=== PATIENT | male | born 1945 | race Caucasian/White ===

== ENCOUNTER → 2023-07-14 12:48 | Outpatient (REF) | payer MEDICARE, OTHER, SELFPAY | LOC: DHCBC MAIN 12:48 | PROVIDERS: ATTENDING PHYSICIAN Internal Medicine Cardiovascular Disease; FAMILY PHYSICIAN Family Medicine | DX: I49.3 Ventricular premature depolarization (principal) | CPT/HCPCS: 93306 ==

== ENCOUNTER → 2023-08-05 06:34 | Day surgery (SDC) | payer MEDICARE, OTHER, SELFPAY | LOC: GI 06:34 | PROVIDERS: ATTENDING PHYSICIAN Internal Medicine Gastroenterology | DX: D50.9 Iron deficiency anemia, unspecified (principal); K57.30 Diverticulosis of large intestine without perforation or abscess without bleeding; K64.8 Other hemorrhoids; K22.89 Other specified disease of esophagus; K44.9 Diaphragmatic hernia without obstruction or gangrene; K31.811 Angiodysplasia of stomach and duodenum with bleeding; K31.89 Other diseases of stomach and duodenum; I89.0 Lymphedema, not elsewhere classified | CPT/HCPCS: 43255; 45378; 43239; 88305 ==

== ENCOUNTER → 2023-09-16 08:27 | Outpatient (REF) | payer MEDICARE, OTHER, SELFPAY | LOC: RAD 08:27 | PROVIDERS: ATTENDING PHYSICIAN Surgery Vascular Surgery; FAMILY PHYSICIAN Family Medicine | DX: I70.1 Atherosclerosis of renal artery (principal) | CPT/HCPCS: 93975 ==

== ENCOUNTER → 2023-09-16 09:30 | Outpatient (REF) | payer MEDICARE, OTHER, SELFPAY | LOC: MRI 3T 09:30 | PROVIDERS: ATTENDING PHYSICIAN Internal Medicine Gastroenterology; FAMILY PHYSICIAN Family Medicine | DX: K76.9 Liver disease, unspecified (principal) | CPT/HCPCS: 74183; A9575 ==

== ENCOUNTER → 2023-10-13 12:50 | Outpatient (REF) | payer MEDICARE, OTHER, SELFPAY | LOC: RCS 12:50 | PROVIDERS: ATTENDING PHYSICIAN Internal Medicine Cardiovascular Disease; FAMILY PHYSICIAN Family Medicine | DX: I31.39 Other pericardial effusion (noninflammatory) (principal); I10 Essential (primary) hypertension; E78.2 Mixed hyperlipidemia; R06.00 Dyspnea, unspecified; I49.3 Ventricular premature depolarization; I08.3 Combined rheumatic disorders of mitral, aortic and tricuspid valves | CPT/HCPCS: 93308; 93321; 93325 ==

== ENCOUNTER → 2024-05-20 11:23 | Outpatient (REF) | payer MEDICARE, OTHER, SELFPAY | LOC: HWRAD 11:23 | PROVIDERS: ATTENDING PHYSICIAN Internal Medicine; FAMILY PHYSICIAN Family Medicine | DX: R22.0 Localized swelling, mass and lump, head (principal) | CPT/HCPCS: 76536 ==

== ENCOUNTER 2024-08-25 13:20 | Outpatient (RCR) | payer MEDICARE, SELFPAY ==
[2024-08-25 11:26] LABS: % Basophils 0.2 % (0-2); % Immature Granulocytes 0.2 % (0-0.5); % Monocytes 15.3 % (1.7-9.3); % Neutrophils 67.3 % (42.2-75.2); Absolute Eosinophils 0.2 10^3/uL (0-0.7); Absolute Lymphocytes 0.7 10^3/uL (1.2-3.4); Absolute Monocytes 0.8 10^3/uL (0.1-0.6); Absolute Neutrophils 3.5 10^3/uL (1.4-6.5); Hematocrit 25.4 % (39.0-52.0); Hemoglobin 8.5 g/dL (13.0-18.0); Mean Corp Hgb Conc. 33.5 g/dL (33.0-37.0); Mean Corpuscular Hgb 29.4 pg (27.0-31.0); Mean Corpuscular Volume 87.9 fL (80.0-94.0); Mean Platelet Volume 9.2 fL (7.4-10.4); Platelet Count 184 10^3/uL (130-400); Red Blood Cell Count 2.89 10^6/uL (4.70-6.10); Red Cell Dist. Width 14.4 % (11.5-14.5); White Blood Cell Count 5.2 10^3/uL (4.8-10.8)
[2024-08-25 12:28] LABS: Blood Urea Nitrogen 33 mg/dl (9-20); Iron 36 ug/dl (49-181)
[2024-08-25 12:38] LABS: Percent Saturation 14 % (20-50); Total Iron Binding Capacity 254 ug/dl (261-462)
== END 2024-08-25 23:59 | disposition home or self-care (01) ==
LOC: OID 13:20
PROVIDERS: ATTENDING PHYSICIAN Nurse Practitioner Adult Health; FAMILY PHYSICIAN Family Medicine
DX: D50.9 Iron deficiency anemia, unspecified (principal)
CPT/HCPCS: 82565; 82728; 83540; 83550; 84520; 85025

== ENCOUNTER → 2024-10-06 14:36 | Outpatient (REF) | payer MEDICARE, SELFPAY ==
[2024-10-06 14:42] LABS: % Basophils 0.2 % (0-2); % Eosinophils 5.7 % (0-6); % Immature Granulocytes 0.2 % (0-0.5); % Lymphocytes 15.4 % (20.5-51.1); % Monocytes 15.1 % (1.7-9.3); % Neutrophils 63.4 % (42.2-75.2); Absolute Eosinophils 0.3 10^3/uL (0-0.7); Absolute Lymphocytes 0.7 10^3/uL (1.2-3.4); Absolute Monocytes 0.7 10^3/uL (0.1-0.6); Absolute Neutrophils 2.9 10^3/uL (1.4-6.5); Hematocrit 32.8 % (39.0-52.0); Hemoglobin 10.5 g/dL (13.0-18.0); Mean Corpuscular Hgb 28.4 pg (27.0-31.0); Mean Corpuscular Volume 88.6 fL (80.0-94.0); Mean Platelet Volume 8.9 fL (7.4-10.4); Platelet Count 179 10^3/uL (130-400); Red Cell Dist. Width 15.3 % (11.5-14.5); White Blood Cell Count 4.6 10^3/uL (4.8-10.8)
== END ==
LOC: OIDL 14:36
PROVIDERS: ATTENDING PHYSICIAN Internal Medicine Hematology & Oncology
DX: D50.0 Iron deficiency anemia secondary to blood loss (chronic) (principal); D64.9 Anemia, unspecified; D46.9 Myelodysplastic syndrome, unspecified
CPT/HCPCS: 85025

== ENCOUNTER 2024-10-26 19:58 | Inpatient (IN) | payer MEDICARE, OTHER, SELFPAY ==
[2024-10-26 16:00] VITALS: BP 168/78
--- NOTE | 2024-10-26 16:35 | ED.GENMED ---
History of Present Illness
<Nay Allen PA-C - Last Filed: 10/26/24 22:23>
General
Chief Complaint: Musculo-Skeletal Complaint
Source: patient
Exam Limitations: none
Time Seen by Provider: 10/26/24 16:19
History of Present Illness
History of Present Illness:
79yoM with a history of hypertension, anemia, Sjogren's syndrome presenting with his for evaluation after a fall about 2 hours ago. Patient reports falling about 4-5 feet off a ladder. He fell onto his feet and injured his right knee. He has
been unable to bear weight since the fall. He denies any head strike or LOC. Patient denies other injuries. Specifically, he denies any headache, neck pain, back pain, shortness of breath, paresthesias. He does not take any blood thinners.
Phy Exam
<Nay Allen PA-C - Last Filed: 10/26/24 22:23>
General Physical Exam
General Presentation: well appearing and no apparent distress
General Skin: warm and dry
General Habitus: normal
General Mental: alert
ENT Exam
ENT Exam: normocephalic and other (No external signs of head trauma. No cervical spine tenderness.)
Eye Exam
Eye Exam: other (R pupil larger than L, baseline per patient)
Pulmonary Exam
Pulmonary Exam: lungs clear, no respiratory distress, no rales, chest non tender, no crackles and no rhonchi
Gastrointestinal Exam
Gastrointestinal Exam: non tender, soft and non distended
Neurological Exam
Neurological Exam: alert
[place] Coma Scale
Eye Opening: Spontaneous
Verbal Response: Oriented
Motor Response: Obeys Commands
GCS Total Score: 15
Musculoskeletal Exam
Musculoskeletal Exam: other (R knee: Deformity noted with swelling to lateral proximal lower leg. +Generalized tenderness. Unable to range joint due to pain. Strong DP doppler signal. Sensation intact.)
Skin Exam
Skin Exam: warm/dry
Psychiatric Exam
Psychiatric Exam: normal mood/affect
Course
<Nay Allen PA-C - Last Filed: 10/26/24 22:23>
Orders/Labs/Results
Orders:
Orders
10/26/24 Breakfast
Cholesterol Lowering
Oral Supplement (If unsure of flavor order apple or vanilla): Ensure Enlive Chocolate
Ensure Enlive [place]
Comment: NPO at midnight for possible surg tommorrow
10/26/24 15:54
Knee, Right 4 or More Views [CR Knee- Right 4 Or More View*] Urgent
Comment:
Reason For Exam: pain injury
10/26/24 16:30
Oxycodone/Acetaminophen [Percocet 5/325] 1 tablet PO NOW STA
10/26/24 16:35
HYDROmorphone [Dilaudid] 0.5 mg IV NOW STA
10/26/24 16:41
CT Angio Lower Ext W/Wo Iv Contrast [CT Lower Ext Angio W/wo Iv Con] Urgent
Comment:
Reason For Exam: R knee injury/deformity
10/26/24 16:47
Complete Blood Count/With Diff Urgent
Comprehensive Metabolic Panel Urgent
10/26/24 17:57
HYDROmorphone [Dilaudid] 0.5 mg IV NOW STA
10/26/24 19:43
Admit/Transfer Patient As Directed
Co-Sign Provider:
Level of Care: Inpatient admission
Assign to:: Medical/Surgical
Physician / Group: solo
Diagnosis: tibial pleateau fracture
Reason for Hospitalization: tibial plateau fracture
Expected length of stay greater than two midnights?: Yes
ELOS- Estimated Length of Stay in days: 3
I certify the patient meets the requirements for IP care: Yes
PRN Pain Medication Management As Directed
May give lesser potent ordered pain med per pt: Yes
preference::
Protocol:: Medication orders for pain may be administered in a
manner that supports deferring to patient preference
when the pt is:
- Requesting an ordered lesser potent pain medication.
Least to most potent pain medications are defined
as: acetaminophen < NSAID < tramadol < opioids
(morphine, oxycodone, hydromorphone).
- Requesting a lesser dose of the same medication IF
ORDERED.
- Requesting a less intrusive route of administration
if both routes are prescribed by the provider (PO <
IV).
10/26/24 19:44
Code Status As Directed
Resuscitation Status: Full Code
10/26/24 21:15
Acetaminophen [Tylenol] 650 mg PO Q4HWA
Amlodipine [Norvasc] 5 mg PO BID
Docusate Sodium [Colace] 100 mg PO BID
Losartan [Cozaar] 50 mg PO BID
Magnesium Hydroxide [Milk of Magnesia] 30 ml PO DAILYPRN PRN
Oxycodone [Roxicodone] 5 mg PO Q4HPRN PRN
Sennosides [Senokot] 17.2 mg PO BID
10/26/24 21:15
ORTHOPEDIC CONSULT Routine
Consulting Provider: Denzel Pisano
Was physician already notified: Yes
Activity As Directed
Activity Level: As Tolerated
Bladder Scan As Directed
Follow Bladder Retention/Intermittent Cath Algorithm?: Yes
PRN if no void in __ hours: 6
Comment: if not voiding 6 hrs upon arrival to floor, bladder scan & follow algorithm
Intake/ Output As Directed
Frequency: Per unit guidelines
Straight Cath As Directed
Frequency: Per Retention Algorithm
Additional Instructions: straight cath as needed per acute urinary retention algorithm for 24 hrs
Additional Instructions: for bladder scan greater than 400 mL
Venous Foot Pumps As Directed
Location: Bilateral feet
Vital Signs As Directed
Frequency: Per unit guidelines
DX Deep Vein Thrombosis Video Routine
10/26/24 21:20
HYDROmorphone [Dilaudid] 1 mg IV Q4HPRN PRN
10/27/24 Breakfast
NPO
Allow oral meds: Yes
Allow clear liquids: No
10/27/24 08:00
Allopurinol [Zyloprim] 100 mg PO DAILY
Famotidine [Pepcid] 20 mg PO DAILY
Tamsulosin [Flomax] 0.4 mg PO DAILY
Abnormal Lab Results
10/26/24
16:47
RBC 4.05 L 10^6/uL
(4.70-6.10)
Hgb 11.5 L g/dL
(13.0-18.0)
Hct 35.4 L %
(39.0-52.0)
MCHC 32.5 L g/dL
(33.0-37.0)
RDW 16.2 H %
(11.5-14.5)
Absolute Lymphs (auto) 0.6 L 10^3/uL
(1.2-3.4)
Absolute Monos (auto) 0.7 H 10^3/uL
(0.1-0.6)
Neutrophils % 78.3 H %
(42.2-75.2)
Lymphocytes % 8.7 L %
(20.5-51.1)
Monocytes % 10.5 H %
(1.7-9.3)
Chloride 109 H mmol/L
(98-107)
BUN 30 H mg/dl
(9-20)
Creatinine 1.5 H mg/dL
(0.7-1.3)
Glucose 112 H mg/dl
(70-99)
Alkaline Phosphatase 131 H U/L
(38-126)
Total Protein 6.2 L g/dl
(6.3-8.2)
10/26/24 16:47
10/26/24 16:47
Vital Signs
Initial and Last Documented VS:
Initial Vital Signs
Pulse Resp BP Pulse Ox
68 18 168/78 100
10/26/24 16:00 10/26/24 16:00 10/26/24 16:00 10/26/24 16:00
Last Documented Vital Signs
Temp Pulse Resp BP Pulse Ox
99.4 F 74 19 167/64 98
10/26/24 21:20 10/26/24 22:00 10/26/24 21:20 10/26/24 22:00 10/26/24 21:20
<Dieter Mckeon, DO - Last Filed: 10/26/24 16:51>
Orders/Labs/Results
Orders:
Orders
10/26/24 Breakfast
Cholesterol Lowering
Oral Supplement (If unsure of flavor order apple or vanilla): Ensure Enlive Chocolate
Ensure Enlive [place]
Comment: NPO at midnight for possible surg tommorrow
10/26/24 15:54
Knee, Right 4 or More Views [CR Knee- Right 4 Or More View*] Urgent
Comment:
Reason For Exam: pain injury
10/26/24 16:30
Oxycodone/Acetaminophen [Percocet 5/325] 1 tablet PO NOW STA
10/26/24 16:35
HYDROmorphone [Dilaudid] 0.5 mg IV NOW STA
10/26/24 16:41
CT Angio Lower Ext W/Wo Iv Contrast [CT Lower Ext Angio W/wo Iv Con] Urgent
Comment:
Reason For Exam: R knee injury/deformity
10/26/24 16:47
Complete Blood Count/With Diff Urgent
Comprehensive Metabolic Panel Urgent
10/26/24 17:57
HYDROmorphone [Dilaudid] 0.5 mg IV NOW STA
10/26/24 19:43
Admit/Transfer Patient As Directed
Co-Sign Provider:
Level of Care: Inpatient admission
Assign to:: Medical/Surgical
Physician / Group: solo
Diagnosis: tibial pleateau fracture
Reason for Hospitalization: tibial plateau fracture
Expected length of stay greater than two midnights?: Yes
ELOS- Estimated Length of Stay in days: 3
I certify the patient meets the requirements for IP care: Yes
PRN Pain Medication Management As Directed
May give lesser potent ordered pain med per pt: Yes
preference::
Protocol:: Medication orders for pain may be administered in a
manner that supports deferring to patient preference
when the pt is:
- Requesting an ordered lesser potent pain medication.
Least to most potent pain medications are defined
as: acetaminophen < NSAID < tramadol < opioids
(morphine, oxycodone, hydromorphone).
- Requesting a lesser dose of the same medication IF
ORDERED.
- Requesting a less intrusive route of administration
if both routes are prescribed by the provider (PO <
IV).
10/26/24 19:44
Code Status As Directed
Resuscitation Status: Full Code
10/26/24 21:15
Acetaminophen [Tylenol] 650 mg PO Q4HWA
Amlodipine [Norvasc] 5 mg PO BID
Docusate Sodium [Colace] 100 mg PO BID
Losartan [Cozaar] 50 mg PO BID
Magnesium Hydroxide [Milk of Magnesia] 30 ml PO DAILYPRN PRN
Oxycodone [Roxicodone] 5 mg PO Q4HPRN PRN
Sennosides [Senokot] 17.2 mg PO BID
10/26/24 21:15
ORTHOPEDIC CONSULT Routine
Consulting Provider: Denzel Pisano
Was physician already notified: Yes
Activity As Directed
Activity Level: As Tolerated
Bladder Scan As Directed
Follow Bladder Retention/Intermittent Cath Algorithm?: Yes
PRN if no void in __ hours: 6
Comment: if not voiding 6 hrs upon arrival to floor, bladder scan & follow algorithm
Intake/ Output As Directed
Frequency: Per unit guidelines
Straight Cath As Directed
Frequency: Per Retention Algorithm
Additional Instructions: straight cath as needed per acute urinary retention algorithm for 24 hrs
Additional Instructions: for bladder scan greater than 400 mL
Venous Foot Pumps As Directed
Location: Bilateral feet
Vital Signs As Directed
Frequency: Per unit guidelines
DX Deep Vein Thrombosis Video Routine
10/26/24 21:20
HYDROmorphone [Dilaudid] 1 mg IV Q4HPRN PRN
10/27/24 Breakfast
NPO
Allow oral meds: Yes
Allow clear liquids: No
10/27/24 08:00
Allopurinol [Zyloprim] 100 mg PO DAILY
Famotidine [Pepcid] 20 mg PO DAILY
Tamsulosin [Flomax] 0.4 mg PO DAILY
Abnormal Lab Results
10/26/24
16:47
RBC 4.05 L 10^6/uL
(4.70-6.10)
Hgb 11.5 L g/dL
(13.0-18.0)
Hct 35.4 L %
(39.0-52.0)
MCHC 32.5 L g/dL
(33.0-37.0)
RDW 16.2 H %
(11.5-14.5)
Absolute Lymphs (auto) 0.6 L 10^3/uL
(1.2-3.4)
Absolute Monos (auto) 0.7 H 10^3/uL
(0.1-0.6)
Neutrophils % 78.3 H %
(42.2-75.2)
Lymphocytes % 8.7 L %
(20.5-51.1)
Monocytes % 10.5 H %
(1.7-9.3)
Chloride 109 H mmol/L
(98-107)
BUN 30 H mg/dl
(9-20)
Creatinine 1.5 H mg/dL
(0.7-1.3)
Glucose 112 H mg/dl
(70-99)
Alkaline Phosphatase 131 H U/L
(38-126)
Total Protein 6.2 L g/dl
(6.3-8.2)
10/26/24 16:47
10/26/24 16:47
Vital Signs
Initial and Last Documented VS:
Initial Vital Signs
Pulse Resp BP Pulse Ox
68 18 168/78 100
10/26/24 16:00 10/26/24 16:00 10/26/24 16:00 10/26/24 16:00
Last Documented Vital Signs
Temp Pulse Resp BP Pulse Ox
99.4 F 74 19 167/64 98
10/26/24 21:20 10/26/24 22:00 10/26/24 21:20 10/26/24 22:00 10/26/24 21:20
Dallinlt;Nay Allen PA-C - Last Filed: 10/26/24 22:23>
MDM/Problems Addressed
Differential Diagnosis Includes:
79yoM here with R knee pain after a 4-5 foot fall off a ladder. Denies other injuries. No blood thinners. R knee deformity and swelling noted. Unable to range joint. DP Doppler signal strong. No other injuries seen on exam. Differential diagnosis
includes but is not limited to: fracture, dislocation, sprain, meniscus injury
Initial ED plan: X-rays obtained in triage which show a tibial plateau fracture. Patient also assessed by Dr. Mckeon. Will check CT angiogram to r/o vascular injury. IV Dilaudid for pain.
<Nay Allen PA-C - Last Filed: 10/26/24 22:23>
*Critical Care Note
Total Time (30-74mins, 75-104mins- exclusive of procedures): Not Applicable
<Nay Allen PA-C - Last Filed: 10/26/24 22:23>
Update Note
Update Note:
No vascular injury seen on CT. Patient requiring multiple doses of Dilaudid for pain control. He has many steps in his home that are steep and does not feel comfortable being discharged. Patient admitted for further management.
ED Attending Note
<Nay Allen PA-C - Last Filed: 10/26/24 22:23>
-
Portions of this chart may have been created with voice recognition software.� Occasional wrong word or��sound alike� substitutions may have occurred due to the inherent limitations of voice recognition software.
<Dieter Mckeon DO - Last Filed: 10/26/24 16:51>
ED Attending Note
Patient seen and examined by attending physician: Yes
I performed the substantive portion of visit, reviewed & personally made and approve the management plan that is documented in note by myself or COLLIN.: Yes
ED Attending Note:
Seen with PA examined independently 79-year-old male was on a ladder fell struck his foot and then his knee looks like he has a displaced tibial plateau fracture
No head or neck trauma
Appears to be neurovascularly intact, obvious concern would be if he had a knee dislocation which relocated I do not think this is likely but plausible, was good to get a CT scan for operative planning of his plateau fracture, will also order
angiogram to look for any vascular injury
Discharge Plan
Departure
Patient Disposition: Admit
Date of Disposition: 10/26/24
Time of Disposition: 19:16
Presentation/result/management discussed w/ accepting MD/DO: Hospitalist
Discharge Problem:
Closed fracture of right tibial plateau
Interventions
Interventions:
*Risk Screen - Suicide Last Done: 10/26/24 16:00
*General Assessment Last Done: 10/26/24 16:00
*Neglect/Abuse Screening Last Done: 10/26/24 18:13
*ED- Fall Risk Assessment Last Done: 10/26/24 21:12
*ED COVID-19 Vaccine History Last Done: 10/26/24 21:12
*Nursing Disposition Last Done: 10/26/24 21:12
ED-Musculoskeletal Assessment Last Done: 10/26/24 16:27
Discharge Date and Time
Discharge Date/Time: 10/26/24 21:13
[2024-10-26] MEDS: DILAUDID 0.5 MG IV ×2 (16:43→18:27)
[2024-10-26 17:05] LABS: % Basophils 0.1 % (0-2); % Immature Granulocytes 0.4 % (0-0.5); % Lymphocytes 8.7 % (20.5-51.1); % Monocytes 10.5 % (1.7-9.3); % Neutrophils 78.3 % (42.2-75.2); Absolute Eosinophils 0.1 10^3/uL (0-0.7); Absolute Lymphocytes 0.6 10^3/uL (1.2-3.4); Absolute Monocytes 0.7 10^3/uL (0.1-0.6); Absolute Neutrophils 5.4 10^3/uL (1.4-6.5); Hematocrit 35.4 % (39.0-52.0); Hemoglobin 11.5 g/dL (13.0-18.0); Mean Corp Hgb Conc. 32.5 g/dL (33.0-37.0); Mean Corpuscular Hgb 28.4 pg (27.0-31.0); Mean Corpuscular Volume 87.4 fL (80.0-94.0); Mean Platelet Volume 8.8 fL (7.4-10.4); Nucleated Red Blood Cells % 0 % (-); Platelet Count 218 10^3/uL (130-400); Red Blood Cell Count 4.05 10^6/uL (4.70-6.10); Red Cell Dist. Width 16.2 % (11.5-14.5); White Blood Cell Count 6.9 10^3/uL (4.8-10.8)
[2024-10-26 17:13] LABS: ALT (SGPT) 16 U/L (0-50); AST (SGOT) 25 U/L (17-59); Alkaline Phosphatase 131 U/L (38-126); Blood Urea Nitrogen 30 mg/dl (9-20); Calcium 9.3 mg/dl (8.4-10.2); Carbon Dioxide 25 mmol/L (22-30); Chloride 109 mmol/L (98-107); Glucose 112 mg/dl (70-99); Potassium 4.9 mmol/L (3.5-5.1); Sodium 140 mmol/L (135-145); Total Bilirubin 0.5 mg/dl (0.2-1.3); Total Protein 6.2 g/dl (6.3-8.2); eGFR 47.06
--- NOTE | 2024-10-26 19:23 | HPS.HSE ---
Addendum entered and electronically signed by Nav Aguilar DO 10/26/24 20:51:
Patient seen and examined independently. Agree with findings and plan as set forth by TIBURCIO Ford.
Patient is a 79y M with PMH significant for hypertension and Sjogren's syndrome who presents to ED complaining of R knee pain after fall from a ladder this afternoon. Patient fell from a step ladder and landed hard on his R foot. he noted
immediate pain in the R knee and inability to ambulate. In the ED, imaging is significant for R tibial plateau fracture.
Ass:
Right Tibial Plateau Fracture
Fall from ladder
Benign Hypertension
CKD III
Anemia of Chronic Disease
History of Gout
BPH
Plan:
Admit for further evaluation and treatment.
NWB RLE. Pain control. Supportive care.
Ortho evaluation.
NPO after midnight for possible OR in AM.
Renal function / blood counts are at baseline.
Continue usual home meds with holding parameters.
Original Note:
Family Physician
-
Family Physician: Wilma Stein
Chief Complaint
-
mechanical fall
History of Present Illness
79yoM with a history of hypertension, anemia, Sjogren's syndrome presenting with his for evaluation after a fall bout 4-5 feet off a ladder. He fell onto his feet and injured his right knee. He has been unable to bear weight since the fall.
He denies any head strike or LOC. denied RODRIGUEZ, dizzy or syncope. denied fever, chills, chest pain, sob. denied runny nose, congestion, cough. denied abdominal pain,n,v,d. denied dysuria or hematuria.
X-ray with lateal tib pleauea fracture. Patient received Dilaudid and Oxy in ER. Immobilizer placed on right knee. Admitted for further management
Medical History
Past Medical History
Past Medical History: Reports Other
Additional Past Medical History:
Gout GERD, hypertension, BPH, CKD, sjorgen syndrome, testicular cancer
Past Surgical History: Reports Other
Additional Past Surgical History:
Left knee replacement, hernia repair, appendectomy, testicular surgery
Social History
Tobacco: Non-smoker
Alcohol: None
Drug: None
Personal:
Living: With Family
Family History
Family History: Not pertinent
Allergies / Home Medications
Allergies reflects when Allergies were last updated in [employer].
Home Medications with original date entered in [employer]
Allergy/Medication List:
Allergies
Allergy/AdvReac Type Severity Reaction Status Date / Time
omeprazole Allergy Mild Hives Verified 11/03/22 18:14
Home Medications
losartan 50 mg tablet 100 mg PO DAILY 01/16/15
allopurinol 100 mg tablet 100 mg PO DAILY 11/29/20
famotidine 20 mg tablet 20 mg PO DAILY 11/29/20
tamsulosin 0.4 mg capsule 0.4 mg PO BID 11/29/20
Review of Systems
-
Constitutional: Reports No Symptoms
EENT: Reports No Symptoms
Respiratory: Reports No Symptoms
Cardiac: Reports No Symptoms
Abdomen/GI: Reports No Symptoms
: Reports No Symptoms
Musculoskeletal: Reports Other (Right knee pain)
Skin: Reports No Symptoms
Neurological: Reports No Symptoms
Endocrine: Reports No Symptoms
Hematologic/Lymphatic: Reports No Symptoms
Psych: Reports No Symptoms
Physical Exam
Vital Signs
Vital Signs
Pulse Resp BP Pulse Ox
68 18 168/78 100
10/26/24 16:00 10/26/24 16:00 10/26/24 16:00 10/26/24 16:00
Physical Exam
General: Well Developed, Well Nourished and No Apparent Distress
HEENT: NormoCephalic, Moist mucous membranes and Atraumatic
Respiratory: Clear
Cardiac: S1/S2 and Regular Rhythm; No Murmur or Rub
GI: Soft, Non Tender, Non Distended and Normal Bowel Sounds; No Organomegaly
Rectal: Deferred by Provider
Musculoskeletal: No Clubbing, No Cyanosis, No Edema and Other (Tenderness, unable to range joint due to pain)
Skin: No Rash
Neuro: Nonfocal/grossly intact
Laboratory Results
-
10/26/24 16:47
10/26/24 16:47
Laboratory Results
Total Bilirubin 0.5 mg/dl (0.2-1.3) 10/26/24 16:47
AST 25 U/L (17-59) 10/26/24 16:47
ALT 16 U/L (0-50) 10/26/24 16:47
Alkaline Phosphatase 131 U/L (38-126) H 10/26/24 16:47
Data Reviewed
-
Diagnostic Radiology: Report Reviewed by me
CT Scan: Report Reviewed by me
Lab Data: Labs Reviewed by me
Impression/Plan
-
# Right knee pain status post fall secondary to tibial plateau fracture
- IV Oxy, Dilaudid as needed for pain
- Will keep patient n.p.o. after midnight for possible surgery tomorrow
- Orthopedics consulted
- CT lower extremity with impression of Comminuted mildly depressed fracture of the right lateral tibial plateau, incompletely evaluated with this study detailed for angiographic evaluation.Cannot exclude small nondisplaced fracture of the proximal
right fibula, evaluation limited.No findings to suggest arterial vascular injury about the right knee.Atherosclerotic changes of the iliac and femoral arterial system bilaterally, especially the proximal right femoral artery, cannot exclude short
segment significant stenosis.4.0 x 3.0 x 3.4 cm peripherally calcified soft tissue density INDETERMINATE 'lesion' along or within the right hemiscrotum, scrotum proper not entirely excluded on this study. Clinical correlation recommended
- Knee x-ray with impression Mildly depressed right lateral tibial plateau fracture.
# Anemia of chronic disease
- Hemoglobin stable 11.5
- No active bleed
- Continue to monitor
# CKD stage IIIb
- Creatinine 1.5
- Continue to monitor
# Essential hypertension
- Norvasc, losartan continue with hold parameters
# Gout
- Allopurinol continued
# History of GERD
- PPI continued
# BPH
- Flomax continued
# History of testicular cancer
-s/p orchiectomy with prosthetic testes
#hxt of Sjogren syndrome
# DVT prophylaxis
-SCDs
# CODE STATUS
-Full code
[2024-10-26 21:20] VITALS: BP 180/69
--- NOTE | 2024-10-26 21:30 | PTCARENOTE ---
Pt is a 79y M arrived from ED at 21:15 with R knee brace. PMH HTN, Sjogren's syndrome, CKD II, Chronic Anemia Disease, History of Gout, BPH presents to ED complaining of R knee pain after fall from a ladder. In the ED, imaging is significant for
R tibial plateau fracture. Pt AOx3, pain addressed, bed in a low position, call light in reach, pt NPO after midnight for possible surgery tomorrow, care on going.
[2024-10-26] MEDS: COZAAR 50 MG PO (22:00)
[2024-10-26] MEDS: COLACE 100 MG PO (22:00)
[2024-10-26] MEDS: NORVASC 5 MG PO (22:00)
[2024-10-26] MEDS: SENOKOT 17.2 MG PO (22:00)
[2024-10-26] MEDS: TYLENOL 650 MG PO (22:00)
[2024-10-26] MEDS: ROXICODONE 5 MG PO (22:15)
[2024-10-26 23:20] VITALS: BP 165/55
[2024-10-27] VITALS (9 sets, daily range): BP systolic 114–162; BP diastolic 47–63
[2024-10-27] MEDS: TYLENOL 650 MG PO ×6 (00:59→23:02)
--- NOTE | 2024-10-27 07:38 | W.PN.UPDATE ---
Update Note
Progress Note Update
Full orthopedic consult dictated:
Patient has comminuted right tibial plateau fracture. He should remain n.p.o. and Ancef on-call to the operating room. Surgical location marked. Surgical and blood consent signed by patient. Dr. Pisano to do surgery later this afternoon.
[2024-10-27] MEDS: COZAAR 50 MG PO ×2 (08:28→19:27)
[2024-10-27] MEDS: COLACE 100 MG PO ×2 (08:28→19:26)
[2024-10-27] MEDS: NORVASC 5 MG PO ×2 (08:29→19:27)
[2024-10-27] MEDS: PEPCID 20 MG PO (08:29)
[2024-10-27] MEDS: FLOMAX 0.4 MG PO (08:29)
[2024-10-27] MEDS: SODIUM BICARBONATE 1300 MG PO (08:29)
[2024-10-27] MEDS: ZYLOPRIM 100 MG PO (08:29)
[2024-10-27] MEDS: THERAGRAN 1 TABLET PO (08:29)
[2024-10-27] MEDS: SENOKOT PO (08:36)
--- NOTE | 2024-10-27 09:31 | W.PN.HOSP.TC ---
Today's Communication/Plan
-
For ORIF of his right tibial plateau fracture today
Assessment / Plan
Assessment / Plan
HPI: 79y M with PMH significant for hypertension and Sjogren's syndrome who presents to ED complaining of R knee pain after fall from a ladder this afternoon. Patient fell from a step ladder and landed hard on his R foot. he noted immediate
pain in the R knee and inability to ambulate. In the ED, imaging is significant for R tibial plateau fracture.
#Right tibial plateau fracture
#Mechanical fall
Appreciate orthopedic surgery input, for ORIF of his right tibial plateau fracture today
Pain meds, PT/OT, laxatives
#Anemia of chronic disease
Trend hemoglobin
#Stage IIIb chronic kidney disease
Creatinine at baseline, monitor
#Essential hypertension
Continue Norvasc and losartan with hold parameters
#Gout
Continue allopurinol
#BPH
Continue Flomax, bladder scan protocol
#History of testicular cancer
Status post orchiectomy with prostatic testes
#History of Sjogren's syndrome
DVT prophylaxis�SCDs for now
Full code
Total time spent to see the patient on the floor, examine the patient, review data and lab results, discuss treatment plan with patient, nursing staff around 35 minutes.
Physical Exam
General: No acute distress
HEENT: Normocephalic, Atraumatic, EOMI, MMM
Respiratory: Clear to Auscultation bilaterally
Cardiac: Normal S1/S2, Regular Rate and Rhythm
GI: Soft, Nontender, Nondistended, Normal Bowel Sounds
Extremities: Right knee is tender to palpation
No Clubbing, Cyanosis
Neuro: Nonfocal/Grossly Intact
Psych: Calm, Cooperative
Derm: No Visible lesions
Anticipated Discharge: 24 - 48 hours
Subjective/Interval History
-
Date of Service: October 27, 2024
Patient reports he does not have right knee pain at rest, does have right knee pain with any type of movement. Denies chest pain, denies shortness of breath. No fever, no vomiting.
Objective Data
-
Vital Signs:
Vital Signs
Temp Pulse Resp BP Pulse Ox
98.1 F 57 18 162/58 96
10/27/24 07:40 10/27/24 08:29 10/27/24 07:40 10/27/24 08:29 10/27/24 07:40
I&O
10/26/24 10/27/24 10/28/24
06:59 06:59 06:59
Intake Total 480 / 480
Output Total 500 / 500 300 / 300
Balance -500 / -500 180 / 180
--- NOTE | 2024-10-27 11:27 | CM ---
Reviewed the chart notes and spoke with the patient at the bedside. Patient anticipates going to the OR later today for right tibial plateau fracture repair. The patient resides with his spouse in a two story home with one step to enter. The
patient reports no DME/SNF in past, but did have VN. Agency unknown. The patient confirmed [facility] choice [facility]. CM continues to be available to patient/family and is monitoring medical plan for needs at discharge.
Plan: Discharge plans will depend on the patient's progress.
--- NOTE | 2024-10-27 13:20 | PTCARENOTE ---
IV dilaudid administered for R knee pain; Wipes performed pre-op. Received call from OR, report given for Pt. Sent to OR ~ [id number]
[2024-10-27] MEDS: DILAUDID 1 MG IV ×2 (14:47→22:38)
--- NOTE | 2024-10-27 15:30 | PTCARENOTE ---
IV dilaudid administered for R knee pain; Wipes performed pre-op. Received call from OR, report given for Pt. Sent to OR ~ [id number]
[2024-10-27] MEDS: TYLENOL PO (17:34)
[2024-10-27] MEDS: ASPIRIN 325 MG PO (18:38)
[2024-10-27] MEDS: SENOKOT 17.2 MG PO (19:27)
[2024-10-27] MEDS: ROXICODONE 5 MG PO (20:16)
[2024-10-27] MEDS: ANCEF 5 IV (23:02)
[2024-10-28] VITALS (7 sets, daily range): BP systolic 141–175; BP diastolic 53–67; PULSE 71; O2SAT 98
[2024-10-28] MEDS: DILAUDID 1 MG IV (03:28)
[2024-10-28] MEDS: TYLENOL 650 MG PO ×5 (03:28→20:30)
--- NOTE | 2024-10-28 06:49 | W.PN.ORTHO ---
Today's Communication / Plan
-
POD#1 right tibia plateau ORIF under the direction of Dr. Pisano
--Non weight bearing to right leg. Ambulate with assistive device
--Keep knee immobilizer in place
--PT/OT evaluation
--Pain management as needed
--Aspirin 325mg daily for DVT prophylaxis x4 weeks postop
--Maintain dressings
--Labs pending this morning
--Case management consult for discharge planning
--Follow up outpatient in two weeks for suture/staple removal and updated xrays
Assessment
.
Distal Motor Intact: Yes
Dressing:
Clean, dry and intact.
Plan
.
Surgery / Date: Right tibia plateau ORIF 10/27/24 Dr. Pisano
DVT Prophylaxis: Aspirin
Activity:
Out of bed.
PT/OT
Subjective
.
.:
Patient resting comfortably in bed this morning. His pain is well controlled at this time
Vital Signs and Labs
.
Vital Signs and Labs:
Temp Pulse Resp BP Pulse Ox
97.1 F 73 18 141/56 95
10/28/24 03:15 10/28/24 03:15 10/28/24 03:15 10/28/24 03:15 10/28/24 03:15
Physical Exam
-
Directed exam of RLE. There is knee immobilizer in place. Surgical dressings clean and dry. ROM knee deferred. calf soft and nontender. able to plantarflex/dorsiflex the ankle. NVI distally
[2024-10-28 07:12] LABS: Hematocrit 31.5 % (39.0-52.0); Hemoglobin 10.4 g/dL (13.0-18.0); Mean Corpuscular Hgb 28.7 pg (27.0-31.0); Mean Corpuscular Volume 86.8 fL (80.0-94.0); Platelet Count 196 10^3/uL (130-400); Red Blood Cell Count 3.63 10^6/uL (4.70-6.10); Red Cell Dist. Width 15.9 % (11.5-14.5); White Blood Cell Count 6.8 10^3/uL (4.8-10.8)
[2024-10-28 08:10] LABS: Blood Urea Nitrogen 37 mg/dl (9-20); Calcium 9.1 mg/dl (8.4-10.2); Carbon Dioxide 24 mmol/L (22-30); Chloride 108 mmol/L (98-107); Estimated Creatinine Clearance 41 ml/min; Glucose 114 mg/dl (70-99); Potassium 5.2 mmol/L (3.5-5.1); Sodium 137 mmol/L (135-145); eGFR 43.56
[2024-10-28] MEDS: ANCEF 5 IV (08:41)
[2024-10-28] MEDS: FLUSH (NSS) 2 FLUSH IV (08:42)
[2024-10-28] MEDS: SENOKOT 17.2 MG PO ×2 (08:42→20:30)
[2024-10-28] MEDS: ASPIRIN 325 MG PO (08:42)
[2024-10-28] MEDS: PEPCID 20 MG PO (08:43)
[2024-10-28] MEDS: ZYLOPRIM 100 MG PO (08:43)
[2024-10-28] MEDS: THERAGRAN 1 TABLET PO (08:43)
[2024-10-28] MEDS: NORVASC 5 MG PO ×2 (08:43→20:32)
[2024-10-28] MEDS: SODIUM BICARBONATE 1300 MG PO (08:43)
[2024-10-28] MEDS: COLACE 100 MG PO ×2 (08:43→20:30)
[2024-10-28] MEDS: COZAAR 50 MG PO ×2 (08:44→20:32)
[2024-10-28] MEDS: FLOMAX 0.4 MG PO (08:44)
[2024-10-28] MEDS: MIRALAX 17 GRAMS PO (08:44)
--- NOTE | 2024-10-28 08:46 | W.PN.HOSP.TC ---
Today's Communication/Plan
-
Monitor hemoglobin, plan for discharge home with home PT tomorrow
Assessment / Plan
Assessment / Plan
HPI: 79y M with PMH significant for hypertension and Sjogren's syndrome who presents to ED complaining of R knee pain after fall from a ladder this afternoon. Patient fell from a step ladder and landed hard on his R foot. he noted immediate
pain in the R knee and inability to ambulate. In the ED, imaging is significant for R tibial plateau fracture.
#Right tibial plateau fracture
#Mechanical fall
Appreciate orthopedic surgery input, s/p ORIF of his right tibial plateau fracture 10/27
Pain meds, PT/OT, laxatives
Keep knee immobilizer in place
Orthopedic surgery recommends aspirin 325 mg daily for DVT prophylaxis for 4 weeks postop, follow-up in the office in 2 weeks for suture/staple removal and updated x-rays
#Anemia of chronic disease
Trend hemoglobin
#Stage IIIb chronic kidney disease
Creatinine at baseline, monitor
#Essential hypertension
Continue Norvasc and losartan with hold parameters
#Gout
Continue allopurinol
#BPH
Continue Flomax, bladder scan protocol
#History of testicular cancer
Status post orchiectomy with prostatic testes
#History of Sjogren's syndrome
DVT prophylaxis�aspirin 325 mg daily as per orthopedic surgery
Full code
Total time spent to see the patient on the floor, examine the patient, review data and lab results, discuss treatment plan with patient, nursing staff around 38 minutes.
Physical Exam
General: No acute distress
HEENT: Normocephalic, Atraumatic, EOMI, MMM
Respiratory: Clear to Auscultation bilaterally
Cardiac: Normal S1/S2, Regular Rate and Rhythm
GI: Soft, Nontender, Nondistended, Normal Bowel Sounds
Extremities: Right knee dressed, brace in place
No Clubbing, Cyanosis
Neuro: Nonfocal/Grossly Intact
Anticipated Discharge: Within 24 hours
Subjective/Interval History
-
Date of Service: October 28, 2024
Patient reports his right knee pain is tolerable. It is minimal at rest, excruciating with movement. No chest pain, no shortness of breath. No fever, no vomiting.
Objective Data
-
Labs:
Laboratory Results
10/28/24
06:55
WBC 6.8
Hgb 10.4 L
Hct 31.5 L
Plt Count 196
Sodium 137
Potassium 5.2 H
Chloride 108 H
Carbon Dioxide 24
BUN 37 H
Creatinine 1.6 H
Glucose 114 H
Calcium 9.1
Vital Signs:
Vital Signs
Temp Pulse Resp BP Pulse Ox
98.6 F 63 14 154/56 96
10/28/24 07:25 10/28/24 07:25 10/28/24 07:25 10/28/24 07:25 10/28/24 07:25
I&O
10/27/24 10/28/24 10/29/24
06:59 06:59 06:59
Intake Total 1235 / 1235
Output Total 500 / 500 1825 / 1825
Balance -500 / -500 -590 / -590
[2024-10-28] MEDS: ROXICODONE 5 MG PO ×3 (08:48→21:34)
--- NOTE | 2024-10-28 10:35 | CM ---
Addendum entered by Gertrudis Hillman RN 10/28/24 16:20:
IMM reviewed.
Original Note:
Reviewed the chart notes and spoke with the patient at the bedside. Patient is NWB RLE with knee immobilizer in place. PT evaluation pending for discharge planning. CM continues to be available to patient/family and is monitoring medical plan for
needs at discharge.
Plan: Discharge plans will depend on the patient's ability to ambulate in home.
--- NOTE | 2024-10-28 14:00 | VNURNOTE ---
[facility] liaison met with patient at bedside. Patient stated that he wanted to go to outpt PT when able. He cannot drive as of now. Explained that PT, OT recs are for home PT, OT. Explained [facility] services: short term, intermittent, skilled. Reviewed
with patient that he will receive services 2-3x / week and [facility] will call him within 1-2 days of DC. Reviewed pet policy and pt verbalized understanding. He verbalizes understanding and is agreeable. Referral in [facility].
[2024-10-29] MEDS: TYLENOL PO ×2 (00:51→05:10)
[2024-10-29 06:14] LABS: Hematocrit 29.8 % (39.0-52.0); Hemoglobin 9.7 g/dL (13.0-18.0); Mean Corp Hgb Conc. 32.6 g/dL (33.0-37.0); Mean Corpuscular Hgb 28.4 pg (27.0-31.0); Mean Corpuscular Volume 87.1 fL (80.0-94.0); Mean Platelet Volume 8.9 fL (7.4-10.4); Platelet Count 185 10^3/uL (130-400); Red Blood Cell Count 3.42 10^6/uL (4.70-6.10); Red Cell Dist. Width 15.7 % (11.5-14.5); White Blood Cell Count 6.4 10^3/uL (4.8-10.8)
[2024-10-29 06:45] LABS: Blood Urea Nitrogen 42 mg/dl (9-20); Calcium 8.9 mg/dl (8.4-10.2); Carbon Dioxide 25 mmol/L (22-30); Chloride 109 mmol/L (98-107); Estimated Creatinine Clearance 41 ml/min; Glucose 86 mg/dl (70-99); Potassium 4.6 mmol/L (3.5-5.1); Sodium 137 mmol/L (135-145); eGFR 43.56
[2024-10-29 07:10] VITALS: BP 146/55
--- NOTE | 2024-10-29 07:36 | W.PN.HOSP.TC ---
Today's Communication/Plan
-
Stable for discharge today
Assessment / Plan
Assessment / Plan
HPI: 79y M with PMH significant for hypertension and Sjogren's syndrome who presents to ED complaining of R knee pain after fall from a ladder this afternoon. Patient fell from a step ladder and landed hard on his R foot. he noted immediate
pain in the R knee and inability to ambulate. In the ED, imaging is significant for R tibial plateau fracture.
#Right tibial plateau fracture
#Mechanical fall
Appreciate orthopedic surgery input, s/p ORIF of his right tibial plateau fracture 10/27
Pain meds, PT/OT rec home PT, laxatives
Keep knee immobilizer in place
Orthopedic surgery recommends aspirin 325 mg daily for DVT prophylaxis for 4 weeks postop through 11/24/24
Follow-up in the office in 2 weeks for suture/staple removal and updated x-rays
Medically stable for discharge, will discharge on oxycodone and laxatives
Follow-up with PCP in 1 week
#Mild acute blood loss anemia
#Anemia of chronic disease
Trend hemoglobin
#Stage IIIb chronic kidney disease
Creatinine at baseline, monitor
#Essential hypertension
Continue Norvasc and losartan with hold parameters
#Gout
Continue allopurinol
#BPH
Continue Flomax, bladder scan protocol
#History of testicular cancer
Status post orchiectomy with prostatic testes
#History of Sjogren's syndrome
DVT prophylaxis�aspirin 325 mg daily as per orthopedic surgery
Full code
Physical Exam
General: No acute distress
HEENT: Normocephalic, Atraumatic, EOMI, MMM
Respiratory: Clear to Auscultation bilaterally
Cardiac: Normal S1/S2, Regular Rate and Rhythm
GI: Soft, Nontender, Nondistended, Normal Bowel Sounds
Extremities: Right knee dressed, brace in place
No Clubbing, Cyanosis
Neuro: Nonfocal/Grossly Intact
Anticipated Discharge: Today
Subjective/Interval History
-
Date of Service: October 29, 2024
Patient reports his right knee pain is tolerable at rest, worse with movement. Denies chest pain, denies shortness of breath. No fever, no vomiting. He is eager for discharge today.
Objective Data
-
Labs:
Laboratory Results
10/29/24
05:47
WBC 6.4
Hgb 9.7 L
Hct 29.8 L
Plt Count 185
Sodium 137
Potassium 4.6
Chloride 109 H
Carbon Dioxide 25
BUN 42 H
Creatinine 1.6 H
Glucose 86
Calcium 8.9
Vital Signs:
Vital Signs
Temp Pulse Resp BP Pulse Ox
97.7 F 61 18 146/55 96
10/29/24 07:10 10/29/24 07:10 10/29/24 07:10 10/29/24 07:10 10/29/24 07:10
I&O
10/28/24 10/29/24 10/30/24
06:59 06:59 06:59
Intake Total 1235 / 1235 480 / 480
Output Total 1825 / 1825 400 / 400
Balance -590 / -590 80 / 80
[2024-10-29] MEDS: ASPIRIN 325 MG PO (07:49)
[2024-10-29] MEDS: TYLENOL 650 MG PO (07:49)
[2024-10-29] MEDS: PEPCID 20 MG PO (07:50)
[2024-10-29] MEDS: COZAAR 50 MG PO (07:50)
[2024-10-29] MEDS: FLOMAX 0.4 MG PO (07:50)
[2024-10-29] MEDS: SODIUM BICARBONATE 1300 MG PO (07:50)
[2024-10-29] MEDS: THERAGRAN 1 TABLET PO (07:50)
[2024-10-29] MEDS: NORVASC 5 MG PO (07:50)
[2024-10-29] MEDS: DILAUDID 1 MG IV (07:53)
[2024-10-29] MEDS: SENOKOT 17.2 MG PO (07:54)
[2024-10-29] MEDS: COLACE 100 MG PO (07:54)
[2024-10-29] MEDS: MIRALAX 17 GRAMS PO (07:54)
[2024-10-29] MEDS: ZYLOPRIM 100 MG PO (08:02)
--- NOTE | 2024-10-29 10:27 | W.DCSUMMARY ---
Discharge Summary
Discharge Data
Date of Admission: 10/26/24
Date of Discharge: 10/29/24
-
Pending Results: No
Hospital Course
Discharge diagnosis:
Right tibial plateau fracture
Mechanical fall
Mild acute blood loss anemia superimposed on anemia of chronic disease
Stage IIIb chronic kidney disease
Essential hypertension
Gout
Benign prostatic hypertrophy
History of testicular cancer
History of Sjogren syndrome
Consults: Orthopedic surgery
Right lower extremity CT:
Comminuted mildly depressed fracture of the right lateral tibial plateau, incompletely evaluated with this study detailed for angiographic evaluation.
Procedures:
10/27/2024
ORIF of right lateral tibial plateau
Hospital course:
79-year-old male with a past medical history of testicular cancer, BPH, stage III CKD, Sjogren's syndrome, gout, hypertension, and anemia of chronic disease was admitted for right tibial plateau fracture after a mechanical fall. Patient was seen in
conjunction with orthopedic surgery. He underwent ORIF of the right lateral tibial plateau on 10/27/2024. He did well postoperatively. Orthopedic surgery recommends nonweightbearing to the right leg, ambulate with assistive device, keeping the knee
immobilizer in place. They also recommend aspirin 325 mg daily for DVT prophylaxis for 4 weeks through 11/24/2024. He was seen in conjunction with PT/OT, and recommended to have home PT. He is medically stable for discharge. He needs to follow-up
with his primary care doctor in 1 week, and orthopedic surgery in the office in 2 weeks.
Disposition: Home with home PT/home care
Discharge planning: Required 38 minutes
Discharge Plan
-
Patient Disposition: Home with Home Care
Discharge Diagnosis/Procedures: Right tibial plateau fracture, mechanical fall, anemia, chronic kidney disease
Condition: Good
Diet: Regular
Activity: Do not bear weight R leg
Driving Restrictions: As prior to admission
Activity Restrictions/Additional Instructions:
Orthopedic surgery recommends taking aspirin 325 mg daily for 4 weeks through November 24, 2024 to prevent blood clots, then stop.
Keep knee immobilizer in place.
Please follow-up with orthopedic surgery in the office in 2 weeks.
Follow-up with your primary care doctor in 1 week.
Referrals:
Wilma Stein DO [Family Provider, Family Practice] - in less than 1 week
Denzel Pisano MD [Active, Orthopedics] - in two weeks
Prescriptions:
New
aspirin 325 mg Tablet
325 mg PO DAILY Qty: 26 0RF
oxycodone 5 mg Tablet
5 mg PO Q4HPRN PRN (Reason: mild pain) Qty: 30 0RF
sennosides-docusate sodium [Senna-S] 8.6-50 mg tablet
2 tab-cap PO BID Qty: 120 0RF
Continued
losartan 50 MG tablet
50 mg PO BID
allopurinol 100 MG tablet
100 mg PO DAILY
famotidine 20 MG tablet
20 mg PO DAILY
tamsulosin 0.4 MG capsule
0.4 mg PO DAILY
amlodipine [Norvasc] 5 mg Tablet
5 mg PO DAILY
acetaminophen [Tylenol] 325 mg Tablet
650 mg PO Q6HPRN PRN (Reason: mild pain)
therapeutic multivitamin Tablet
1 tab PO DAILY
sodium bicarbonate 650 mg Tablet
1,300 mg PO DAILY
Discharge Orders:
Discharge Patient (As Directed); Ordered 10/29/24
Ordered By: Tiburcio Escalona
Discharge Date and Time
Discharge Date/Time: 10/29/24 12:23
Print Language: ANGUILLAN
[2024-10-29 11:20] VITALS: BP 124/50
--- NOTE | 2024-10-29 12:19 | W.PN.UPDATE ---
Update Note
Progress Note Update
POD#2 right tibia plateau ORIF under the direction of Dr. Pisano
--Non weight bearing to right leg. Ambulate with assistive device
--Keep knee immobilizer in place
--PT/OT evaluation
--Pain management as needed
--Aspirin 325mg daily for DVT prophylaxis x4 weeks postop
--Maintain dressings
--Plan for d/c home today.
--Follow up outpatient in two weeks for suture/staple removal and updated xrays
== END 2024-10-29 12:23 | disposition home health service (06) | DRG 493 ==
LOC: 2 SOUTH 19:58
PROVIDERS: Physician Assistant; ADMITTING PHYSICIAN Hospitalist; ATTENDING PHYSICIAN Family Medicine; CONSULT PHYSICIAN Orthopaedic Surgery Hand Surgery; EMERGENCY PHYSICIAN Emergency Medicine; FAMILY PHYSICIAN Family Medicine
PROC: 0QSG04Z Reposition Right Tibia with Internal Fixation Device, Open Approach (ICD-10-PCS; 2024-10-27)
DX: S82.141A Displaced bicondylar fracture of right tibia, initial encounter for closed fracture (principal); D62 Acute posthemorrhagic anemia; S82.831A Other fracture of upper and lower end of right fibula, initial encounter for closed fracture; S92.351A Displaced fracture of fifth metatarsal bone, right foot, initial encounter for closed fracture; N18.32 Chronic kidney disease, stage 3b; I12.9 Hypertensive chronic kidney disease with stage 1 through stage 4 chronic kidney disease, or unspecified chronic kidney disease; N40.0 Benign prostatic hyperplasia without lower urinary tract symptoms; M10.9 Gout, unspecified; I70.201 Unspecified atherosclerosis of native arteries of extremities, right leg; K21.9 Gastro-esophageal reflux disease without esophagitis; M77.31 Calcaneal spur, right foot; D63.1 Anemia in chronic kidney disease; M35.00 Sjogren syndrome, unspecified; W11.XXXA Fall on and from ladder, initial encounter; Y93.9 Activity, unspecified; Y92.009 Unspecified place in unspecified non-institutional (private) residence as the place of occurrence of the external cause; Z96.652 Presence of left artificial knee joint; Z85.47 Personal history of malignant neoplasm of testis; Z90.79 Acquired absence of other genital organ(s)
CPT/HCPCS: 73564; 73590; 73706; 76000; 80048; 80053; 85025; 85027; 96374; 96375; 97116; 97162; 97167; 97535; 99285; C1713; C1769; Q9967

== ENCOUNTER → 2024-11-21 14:16 | Outpatient (REF) | payer MEDICARE, OTHER, SELFPAY ==
[2024-11-21 14:24] LABS: % Eosinophils 3.4 % (0-6); % Immature Granulocytes 0.3 % (0-0.5); % Lymphocytes 17.5 % (20.5-51.1); % Monocytes 14.2 % (1.7-9.3); % Neutrophils 64.6 % (42.2-75.2); Absolute Eosinophils 0.1 10^3/uL (0-0.7); Absolute Lymphocytes 0.7 10^3/uL (1.2-3.4); Absolute Monocytes 0.6 10^3/uL (0.1-0.6); Absolute Neutrophils 2.5 10^3/uL (1.4-6.5); Hematocrit 25.8 % (39.0-52.0); Hemoglobin 8.5 g/dL (13.0-18.0); Mean Corp Hgb Conc. 32.9 g/dL (33.0-37.0); Mean Corpuscular Hgb 28.6 pg (27.0-31.0); Mean Corpuscular Volume 86.9 fL (80.0-94.0); Mean Platelet Volume 8.7 fL (7.4-10.4); Platelet Count 210 10^3/uL (130-400); Red Blood Cell Count 2.97 10^6/uL (4.70-6.10); Red Cell Dist. Width 16.1 % (11.5-14.5); White Blood Cell Count 3.9 10^3/uL (4.8-10.8)
[2024-11-21 15:06] LABS: Blood Urea Nitrogen 31 mg/dl (9-20); Iron 47 ug/dl (49-181)
[2024-11-21 15:15] LABS: Percent Saturation 21 % (20-50); Total Iron Binding Capacity 221 ug/dl (261-462)
== END ==
LOC: OIDL 14:16
PROVIDERS: ATTENDING PHYSICIAN Internal Medicine Hematology & Oncology
DX: D50.0 Iron deficiency anemia secondary to blood loss (chronic) (principal); D64.9 Anemia, unspecified; D46.9 Myelodysplastic syndrome, unspecified
CPT/HCPCS: 82565; 82728; 83540; 83550; 84520; 85025

== ENCOUNTER → 2024-12-08 16:24 | Outpatient (REF) | payer MEDICARE, OTHER, SELFPAY ==
[2024-12-08 13:41] LABS: Hematocrit 27.2 % (39.0-52.0); Hemoglobin 8.7 g/dL (13.0-18.0); Mean Corp Hgb Conc. 32.0 g/dL (33.0-37.0); Mean Corpuscular Volume 88.6 fL (80.0-94.0); Platelet Count 198 10^3/uL (130-400); Red Cell Dist. Width 16.7 % (11.5-14.5)
== END ==
LOC: OIDL 16:24
PROVIDERS: ATTENDING PHYSICIAN Internal Medicine Hematology & Oncology
DX: D50.0 Iron deficiency anemia secondary to blood loss (chronic) (principal); D64.9 Anemia, unspecified; D46.9 Myelodysplastic syndrome, unspecified
CPT/HCPCS: 85025

== ENCOUNTER 2024-12-22 12:13 | Emergency (ER) | payer MEDICARE, OTHER, SELFPAY ==
[2024-12-22 12:35] VITALS: BP 168/69
[2024-12-22 13:06] LABS: Hematocrit 30.2 % (39.0-52.0); Hemoglobin 9.7 g/dL (13.0-18.0); Mean Corp Hgb Conc. 32.1 g/dL (33.0-37.0); Mean Corpuscular Volume 86.0 fL (80.0-94.0); Nucleated Red Blood Cells % 0 % (-); Platelet Count 194 10^3/uL (130-400); Red Cell Dist. Width 16.3 % (11.5-14.5)
[2024-12-22 13:31] LABS: ALT (SGPT) 11 U/L (0-50); AST (SGOT) 21 U/L (17-59); Albumin 4.0 g/dl (3.5-5.0); Alkaline Phosphatase 144 U/L (38-126); Blood Urea Nitrogen 26 mg/dl (9-20); Calcium 9.1 mg/dl (8.4-10.2); Carbon Dioxide 23 mmol/L (22-30); Chloride 107 mmol/L (98-107); Glucose 107 mg/dl (70-99); Lipase 80 U/L (23-300); Potassium 4.8 mmol/L (3.5-5.1); Sodium 136 mmol/L (135-145); Total Protein 6.5 g/dl (6.3-8.2); eGFR 55.88
[2024-12-22 14:13] VITALS: BMI 24.0
[2024-12-22 14:15] VITALS: BP 185/65
--- NOTE | 2024-12-22 14:32 | ED.GENMED ---
History of Present Illness
General
Chief Complaint: Abdominal Pain
Source: patient and spouse
Exam Limitations: none
Time Seen by Provider: 12/22/24 14:14
Nursing documentation reviewed up to this point in time: agreed with
History of Present Illness
History of Present Illness:
Note:
CHIEF COMPLAINT(S)
Severe abdominal pain and nausea with vomiting.
HISTORY OF PRESENT ILLNESS
The patient is a 79-year-old male who presented with a chief complaint of severe abdominal pain that began yesterday around lunchtime. The pain was diffuse throughout the abdomen and radiated to the back, leading to severe back pain as well. The
patient reported nausea and experienced two episodes of vomiting; the first consisted of food, and the second was primarily water. The abdominal pain persisted throughout the night, preventing the patient from sleeping. This morning, the patient
took ibuprofen, which appears to have alleviated the pain to some degree as he currently reports only mild discomfort. He describes the abdominal pain as being present when pressure is applied, particularly in the regions examined. The pain seemed
to dissipate on the way to the emergency department. The patient denies current pain but noted it being severe enough to disrupt sleep the previous night. No urinary difficulties were noted.
PAST SURGICAL HISTORY
- Appendectomy several decades ago.
- Recent knee surgery (patella and tibia) two months ago.
- Testicular cancer treated with radiation approximately 42 years ago.
- Lensectomy in the left eye, performed around 20 years ago.
CHRONIC MEDICAL CONDITIONS SIGNIFICANTLY AFFECTING CARE
Stage 3 chronic kidney disease.
MEDICATIONS
Currently taking iron supplements due to anemia.
PHYSICAL EXAM
- General: The patient is a well-nourished male, not in acute distress.
- Cardiac: Normal heart sounds S1 and S2 without S3 or S4.
- Pulmonary: No respiratory distress, clear lung sounds.
- Abdomen: Soft, non-tender, and non-distended with no rebound tenderness or guarding.
- Extremities: No edema and normal peripheral pulses.
- Nursing notes reviewed and vital signs reviewed.
PLAN
- Discharge home with a prescription for Zofran (ondansetron) to manage nausea.
- Educate the patient on signs and symptoms for which he should return to the emergency department, such as worsening pain or recurrent vomiting.
- A CT scan was considered but deferred due to preexisting stage 3 kidney disease; contrast was deemed not suitable.
- If symptoms worsen or do not improve, the patient is advised to return for further evaluation.
DIFFERENTIAL DIAGNOSIS
The Differential Diagnosis includes, in no particular order and is not limited to:
1. Gastroenteritis
2. Gastritis
3. Peptic Ulcer Disease
4. Pancreatitis
5. Gallbladder Disease
6. Viral Gastroenteritis
7. Food Poisoning
8. Gastroesophageal Reflux Disease (GERD)
9. Small Bowel Obstruction
10. Non-specific Abdominal Pain
CARE-UPDATE
12/22/24 - 14:33
The patient is currently feeling well and shows no need for additional testing. suspect gastroenteritis and doubts appendicitis due to a history of previous appendectomy. The possibility of cholecystitis and diverticulitis is not indicated. The
patient will be prescribed Zofran for discharge and has been advised on the return of any symptoms for further evaluation. Follow-up care will continue with the primary care physician.
Disposition:
SUMMARY OF ENCOUNTER
The patient, a 79-year-old male, presented to the emergency department with severe abdominal pain, nausea, and vomiting. The abdominal pain was diffuse, radiating to the back, with associated nausea and vomiting beginning yesterday afternoon.
Overnight, the patient experienced persistent abdominal pain that disrupted sleep. This morning, he managed mild discomfort with ibuprofen. Upon evaluation, the abdomen was soft, non-tender, and non-distended with no rebound tenderness or guarding.
Based on his history and current presentation, a CT scan was considered but deferred due to his preexisting stage 3 chronic kidney disease. Gastroenteritis was suspected, and the patient is to be discharged with a prescription for Zofran
(ondansetron) to manage nausea.
DISPOSITION
Discharge
ASSESSMENT
Likely gastroenteritis considering the symptoms of abdominal pain, nausea, and vomiting; however, other differential diagnoses were also considered.
PLAN
Discharge the patient with a prescription for ondansetron (Zofran) for nausea management. Educate the patient on signs and symptoms to return to the emergency department, including worsening pain or recurrent vomiting.
PATIENT EDUCATION AND COUNSELING
The patient was counseled regarding the importance of returning to the emergency department if symptoms worsen or if there is recurrent vomiting, as well as compliance with the medication regimen.
FOLLOW-UP INSTRUCTIONS
The patient is advised to follow up with the primary care physician to ensure continuity of care and evaluate for symptoms or any further necessary interventions.
MEDICATION RECONCILIATION
A prescription for ondansetron (Zofran) has been provided for nausea management.
MEDICAL DECISION MAKING
-Complexity of Data Reviewed:
Chronic conditions affecting care include Stage 3 chronic kidney disease, chronic anemia treated with iron supplementation, and past surgical history.
Differential Diagnosis Considered: Gastroenteritis, Gastritis, Peptic Ulcer Disease, Pancreatitis, Gallbladder Disease, Viral Gastroenteritis, Food Poisoning, Gastroesophageal Reflux Disease (GERD), Small Bowel Obstruction, and Non-specific
Abdominal Pain.
-Data:
Category 1: Tests that were considered include imaging, but a CT scan with contrast was deferred to avoid potential risks associated with the patients chronic kidney disease.
Category 3: Discussion with specialists was considered but not undertaken due to the decision for outpatient management.
-Risk: Consideration of Admission/Observation: Escalation of care including admission/observation was considered given the complexity and risk of the patients presenting complaint and underlying comorbidities. However, it was ultimately determined
that the patient is safe for outpatient management with close follow-up. Reasoning includes stable vitals, patients symptoms becoming manageable, and reliable follow-up capability.
DIAGNOSIS
Abdominal pain, unspecified - ICD-10: R10.9
Nausea with vomiting, unspecified - ICD-10: R11.2
Gastroenteritis, presumed viral - ICD-10: A09
Phy Exam
Physical Exam
Physical Exam:
.
Course
Orders/Labs/Results
Orders:
Orders
12/22/24 12:49
Complete Blood Count/With Diff Urgent
Comprehensive Metabolic Panel Urgent
Lipase Urgent
Abnormal Lab Results
12/22/24
12:49
RBC 3.51 L 10^6/uL
(4.70-6.10)
Hgb 9.7 L g/dL
(13.0-18.0)
Hct 30.2 L %
(39.0-52.0)
MCHC 32.1 L g/dL
(33.0-37.0)
RDW 16.3 H %
(11.5-14.5)
Absolute Lymphs (auto) 0.5 L 10^3/uL
(1.2-3.4)
Neutrophils % 82.2 H %
(42.2-75.2)
Lymphocytes % 7.6 L %
(20.5-51.1)
Monocytes % 9.8 H %
(1.7-9.3)
BUN 26 H mg/dl
(9-20)
Glucose 107 H mg/dl
(70-99)
Alkaline Phosphatase 144 H U/L
(38-126)
12/22/24 12:49
12/22/24 12:49
Vital Signs
Initial and Last Documented VS:
Initial Vital Signs
Temp Pulse Resp BP Pulse Ox
98.6 F 65 16 168/69 98
12/22/24 12:35 12/22/24 12:35 12/22/24 12:35 12/22/24 12:35 12/22/24 12:35
Last Documented Vital Signs
Temp Pulse Resp BP Pulse Ox
98.6 F 65 16 185/65 98
12/22/24 12:35 12/22/24 12:35 12/22/24 12:35 12/22/24 14:15 12/22/24 14:15
*Pulse Oximetry
SaO2: 98
Oxygen Mode of Delivery: Room air
Patient hypoxic: no
*Critical Care Note
Total Time (30-74mins, 75-104mins- exclusive of procedures): Not Applicable
ED Attending Note
-
Portions of this chart may have been created with voice recognition software.� Occasional wrong word or��sound alike� substitutions may have occurred due to the inherent limitations of voice recognition software.
Discharge Plan
Departure
Patient Disposition: Home (Routine Discharge)
Date of Disposition: 12/22/24
Time of Disposition: 14:35
Patient with high blood pressure during this ER visit?: Yes
Condition: Good
Discharge Problem:
Abdominal pain, Nausea and vomiting
Instructions: Nausea and Vomiting, Adult (DC), Abdominal Pain, BLOOD PRESSURE
Prescriptions:
New
ondansetron 4 mg tablet,disintegrating
4 mg PO Q8H PRN (Reason: nausea and vomiting) 4 Days Qty: 7 0RF
No Action
losartan 50 MG tablet
50 mg PO BID
allopurinol 100 MG tablet
100 mg PO DAILY
famotidine 20 MG tablet
20 mg PO DAILY
tamsulosin 0.4 MG capsule
0.4 mg PO DAILY
amlodipine [Norvasc] 5 mg Tablet
5 mg PO DAILY
acetaminophen [Tylenol] 325 mg Tablet
650 mg PO Q6HPRN PRN (Reason: mild pain)
therapeutic multivitamin Tablet
1 tab PO DAILY
sodium bicarbonate 650 mg Tablet
1,300 mg PO DAILY
aspirin 325 mg Tablet
325 mg PO DAILY Qty: 26 0RF
oxycodone 5 mg Tablet
5 mg PO Q4HPRN PRN (Reason: mild pain) Qty: 30 0RF
sennosides-docusate sodium [Senna-S] 8.6-50 mg tablet
2 tab-cap PO BID Qty: 120 0RF
Referrals:
[place],Wilma Celine, DO [Family Provider, Family Practice] - Call in 1-3 days for appt
Interventions
Interventions:
*Risk Screen - Suicide Last Done: 12/22/24 12:35
*General Assessment Last Done: 12/22/24 14:03
*Neglect/Abuse Screening Last Done: 12/22/24 12:35
*ED- Fall Risk Assessment Last Done: 12/22/24 14:03
*ED COVID-19 Vaccine History Last Done: 12/22/24 14:03
LC-Eoefsf-Ylxqqfkltv Assessment Last Done: 12/22/24 14:04
Discharge Date and Time
Print Language: L[place]
== END 2024-12-22 14:53 | disposition home or self-care (01) ==
LOC: EMR 12:13
PROVIDERS: Emergency Medicine; EMERGENCY PHYSICIAN Emergency Medicine; FAMILY PHYSICIAN Family Medicine
DX: K52.9 Noninfective gastroenteritis and colitis, unspecified (principal); N18.30 Chronic kidney disease, stage 3 unspecified; Z90.49 Acquired absence of other specified parts of digestive tract
CPT/HCPCS: 99283; 80053; 83690; 85025

== ENCOUNTER → 2025-01-24 09:36 | Outpatient (REF) | payer MEDICARE, OTHER, SELFPAY | LOC: RAD 09:36 | PROVIDERS: ATTENDING PHYSICIAN Internal Medicine; FAMILY PHYSICIAN Family Medicine | DX: I70.1 Atherosclerosis of renal artery (principal) | CPT/HCPCS: 93975 ==

== ENCOUNTER → 2025-02-07 13:37 | Outpatient (REF) | payer MEDICARE, OTHER, SELFPAY ==
[2025-02-07 13:46] LABS: Hematocrit 31.1 % (39.0-52.0); Hemoglobin 9.8 g/dL (13.0-18.0); Mean Corp Hgb Conc. 31.5 g/dL (33.0-37.0); Mean Corpuscular Volume 89.1 fL (80.0-94.0); Platelet Count 176 10^3/uL (130-400); Red Cell Dist. Width 16.3 % (11.5-14.5)
== END ==
LOC: OIDL 13:37
PROVIDERS: ATTENDING PHYSICIAN Internal Medicine Hematology & Oncology
DX: D50.0 Iron deficiency anemia secondary to blood loss (chronic) (principal); D64.9 Anemia, unspecified; D46.9 Myelodysplastic syndrome, unspecified
CPT/HCPCS: 85025